=== PATIENT | female | born 1990 | race Caucasian/White ===

== ENCOUNTER 2017-05-09 14:49 | Inpatient (IN) | payer OTHER ==
[~2017-05-09] VITALS: Ht 157.5 cm; Wt 58.1 kg
== END 2017-05-11 14:12 | disposition home or self-care (01) | DRG 781 ==
LOC: OB/GYN 14:49
DX: O24.410 Gestational diabetes mellitus in pregnancy, diet controlled (principal); Z3A.15 15 weeks gestation of pregnancy